=== PATIENT | female | born 1970 | race Two or more races ===

== ENCOUNTER → 2024-09-16 | Outpatient (CLI) | payer OTHER, SELFPAY ==
--- NOTE | 2024-09-16 15:45 | XR_ITS ---
Examination: Screening digital mammography, bilateral Computer aided detection 3-D breast Tomosynthesis, bilateral Date and time of exam: September 16, 2024 0934 hours Compared to mammograms dating to March 27, 2020 Indication: Screening Technique: Nonmagnified MLO, CC views of the breasts to been obtained, reconstructed from 3-D Tomosynthesis images. R2 computer aided detection program utilized for evaluation of suspicious masses and/or abnormal calcifications. 3-D Tomosynthesis images obtained. Findings: Scattered areas of fibroglandular density. Benign calcifications. No interval suspicious masses Breast biopsy marker lower right breast Impression: BI-RADS category II: Benign Findings. Recommend 1 year follow-up mammogram.
== END | disposition home or self-care (01) ==
LOC: CDIM 09:24
PROVIDERS: PCP Physician Assistant; Referring Provider Physician Assistant; Visit Provider Physician Assistant
DX: Z12.31 Encounter for screening mammogram for malignant neoplasm of breast (principal); R92.323 Mammographic fibroglandular density, bilateral breasts; R92.1 Mammographic calcification found on diagnostic imaging of breast
CPT/HCPCS: 77063; 77067

== ENCOUNTER 2024-12-13 13:16 | Emergency (ER) | payer OTHER, SELFPAY ==
[2024-12-13 13:50] VITALS: BP 152/95; PULSE 70; RESP 18; TEMP 36.9; O2SAT 99; BMI 31.7
--- NOTE | 2024-12-13 13:51 | XR_ITS ---
Examination: Sacrum and coccyx 3 views TECHNIQUE: AP inclined AP lateral sacrum and coccyx 3 views Exam date and time: December 13, 2024 at 1306 hours INDICATIONS: Patient fell today with injury to the sacrum, sacral pain. FINDINGS: Satisfactory alignment sacrococcygeal segments No fracture IMPRESSION: No fracture
--- NOTE | 2024-12-13 13:51 | XR_ITS ---
Examination: Wrist, right 2 views Technique: Wrist AP, lateral 2 views Date and time of exam: December 13, 2024 1257 hours INDICATIONS: Patient fell today with injury to the wrist, wrist pain. FINDINGS: No acute fracture No dislocation No foreign body IMPRESSION: No acute fracture
--- NOTE | 2024-12-13 13:51 | XR_ITS ---
Examination: Lumbar spine 3 views Technique one AP lateral coned lateral lower lumbar spine 3 views Exam date and time: December 13, 2024 1302 hours INDICATIONS: Patient fell today with injury to lower back, lower back pain. FINDINGS: Satisfactory alignment lumbar vertebral bodies No lumbar fracture No significant lumbar disc narrowing IMPRESSION: No lumbar fracture
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
[2024-12-13] MEDS: ACETAMINOPHEN 325 MG TABLET 650 MG PO (15:07)
== END 2024-12-13 16:31 | disposition home or self-care (01) ==
PROVIDERS: Emergency Provider Emergency Medicine; PCP Physician Assistant Medical
DX: S30.0XXA Contusion of lower back and pelvis, initial encounter (principal); S60.211A Contusion of right wrist, initial encounter; W18.30XA Fall on same level, unspecified, initial encounter
CPT/HCPCS: 72100; 72220; 73100; 99283; A9270

== ENCOUNTER 2025-01-05 12:24 | Emergency (ER) | payer OTHER, SELFPAY ==
[2025-01-05 13:04] VITALS: BP 137/87; PULSE 83; RESP 16; TEMP 36.9; O2SAT 97
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
[2025-01-05] MEDS: IBUPROFEN TAB 400 MG TABLET 800 MG PO (14:31)
== END 2025-01-05 14:50 | disposition home or self-care (01) ==
LOC: SERX 15:10
PROVIDERS: Emergency Provider Emergency Medicine; PCP Nurse Practitioner Primary Care
DX: S20.219A Contusion of unspecified front wall of thorax, initial encounter (principal); S00.03XA Contusion of scalp, initial encounter; V49.40XA Driver injured in collision with unspecified motor vehicles in traffic accident, initial encounter; Y92.410 Unspecified street and highway as the place of occurrence of the external cause
CPT/HCPCS: 71046; 99283; A9270